=== PATIENT | male | born 1995 | race Caucasian/White ===

== ENCOUNTER 2022-12-21 00:26 | Emergency (ER) | payer SELFPAY ==
[~2022-12-21] VITALS: Ht 185.4 cm; Wt 63.6 kg
[~2022-12-21 00:26] MED LIST: ACET-1882 PO; LEVO500T31 PO
[2022-12-21 01:04] LABS: Basophils # (auto) 0.1 10 ^3/uL (0-0.2); Basophils % (auto) 0.8 % (0.0-2.0); Eosinophils # (auto) 0.1 10 ^3/uL (0-0.8); Eosinophils % (auto) 0.7 % (0.0-7.0); Hematocrit 45.8 % (41.0-53.0); Hemoglobin 15.6 g/dL (13.5-17.5); Lymphocytes % (auto) 22.6 % (10.0-50.0); Mean Corpuscular Hemoglobin 33.4 pg (28.0-32.0); Mean Corpuscular Hgb Conc. 34.1 g/dL (32.0-36.0); Mean Corpuscular Volume 97.9 fL (80.0-100.0); Monocytes # (auto) 0.7 10 ^3/uL (0-1.3); Monocytes % (auto) 7.4 % (0.0-12.0); Neutrophils % (auto) 68.5 % (37.0-80.0); Nucleated Red Blood Cells % 0.1 %; Red Blood Cells 4.68 10^6/uL (4.5-5.90); White Blood Cell 8.8 10^3/uL (4.4-10.8)
[2022-12-21 01:21] LABS: Alanine Aminotransferase 195 U/L (7-40); Alkaline Phosphatase 96 U/L (46-116); Anion Gap 11 (5-15); Aspartate Aminotransferase 204 U/L (13-40); BUN/Creatinine Ratio 9.3 (10.0-20.0); Bilirubin, Total 0.7 mg/dL (0.2-1.0); Blood Urea Nitrogen 10 mg/dL (9-23); Calcium 9.5 mg/dL (8.7-10.4); Carbon Dioxide 27 mmol/L (20-30); Chloride 102 mmol/L (98-107); Glucose 82 mg/dL (74-106); Magnesium 2.1 mg/dL (1.6-2.6); Potassium 4.1 mmol/L (3.5-5.1); Sodium 140 mmol/L (136-145)
[2022-12-21 01:36] LABS: INR 1.03 (0.9-1.15); Partial Thromboplastin Time 29.5 SEC (24.5-34.5); Prothrombin Time 10.8 sec (9.3-11.8)
[2022-12-21] MEDS ORDERED: THIAMINE 100mg/ml INJ (200mg/2ml VIAL) IV ONE (07:30)
[2022-12-21] MEDS ORDERED: LORazepam 2MG/ML-1ML VIAL IV ONE (07:30)
[2022-12-21] MEDS ORDERED: SODIUM CHLORIDE 0.9% 1,000 ML IV ONE (07:30)
[2022-12-21 07:37] VITALS: BP 132/78; TEMP 98.2
[2022-12-21 07:38] VITALS: PULSE 120; RESP 18; O2SAT 96
== END 2022-12-21 07:40 | disposition home or self-care (01) ==
LOC: ER 00:26
DX: R07.89 Other chest pain (principal); J45.909 Unspecified asthma, uncomplicated
CPT/HCPCS: 36415; 71045; 80053; 80320; 83690; 83735; 83880; 84484; 85025; 85610; 85730; 93005; 99285; J2060

== ENCOUNTER 2024-04-13 12:30 | Emergency (ER) | payer MEDICAID ==
[~2024-04-13] VITALS: Ht 188 cm; Wt 72.8 kg
[2024-04-13 12:50] VITALS: BP 152/90; PULSE 113; RESP 20; O2SAT 98
--- NOTE | 2024-04-13 13:01 | ED.PDOC ---
Back pain HPI HPI Comments 28y M who presents to the ED for rib pain. Pt states he was wresting with friends and play fighting 3 days prior. Pt states since, he has been having R sided rib pain. Pt rates the pain 6/10, constant, with no associated exacerbating or relieving factors. Pt has no associated symptoms. Pt states he has pain with movement and has pain when attempting to move his R arm above his shoulder. Pt otherwise denies any other symptoms at this time. Chief Complaint: Rib Pain Time Seen by MD: 12:58 Primary Care Provider: NONE Reviewed Notes: Medications, Allergies Allergies: Coded Allergies: NO KNOWN ALLERGIES (Unverified , 03/08/13) Home Meds Active Scripts Levofloxacin (Levaquin) 500 Mg Tab, 500 MG PO DAILY, #12 TAB Prov:CHARLY ALARCON MD 01/22/16 Acetaminophen (Acetaminophen) 325 Mg Tab, 650 MG PO Q4HPRN PRN, #30 TAB Prov:CHARLY ALARCON MD 01/22/16 Information Source: Patient Mode of Arrival: Ambulatory Brought in by: self Timing: Days Duration: Since onset Severity: Moderate Prehospital treatment: None Quality: Sharp Onset: Spontaneous, Bending, Twisting Circumstance: Altercation History of: None Modifying Factors: Nothing Associated signs and symptoms: None Past Medical History PAST MEDICAL HISTORY: Asthma Surgical History: Denies all surgeries Family History Family History: Unobtainable Social History Smoker: Cigarettes, Less Than 1 Pack/Day Alcohol: Occasionally Drugs: Marijuana, Methamphetamine Lives In: Home Constitutional: denies: chills, diaphoresis, fatigue, fever, malaise, sweats, weakness, others EENTM: denies: blurred vision, double vision, ear bleeding, ear discharge, ear drainage, ear pain, ear ringing, eye pain, eye redness, hearing loss, mouth pain, mouth swelling, nasal discharge, nose bleeding, nose congestion, nose pain, photophobia, tearing, throat pain, throat swelling, voice changes, others Respiratory: denies: cough, hemoptysis, orthopnea, SOB at rest, shortness of breath, SOB with excertion, stridor, wheezing, others Cardiovascular: denies: chest pain, dizzy spells, diaphoresis, Dyspnea on exertion, edema, irregular heart beat, left arm pain, lightheadedness, palpitations, PND, syncope, others Gastrointestinal: denies: abdomen distended, abdominal pain, blood streaked bowels, constipated, diarrhea, dysphagia, difficulty swallowing, hematemesis, melena, nausea, poor appetite, poor fluid intake, rectal bleeding, rectal pain, vomiting, others Genitourinary: denies: burning, dysuria, flank pain, frequency, hematuria, incontinence, penile discharge, penile sore, pain, testicle pain, testicle swelling, urgency, others Neurological: denies: dizziness, fainting, headache, left sided numbness, left sided weakness, numbness, paresthesia, pre-existing deficit, right sided numbness, right sided weakness, seizure, speech problems, tingling, tremors, weakness, others Musculoskeletal: reports: muscle pain (rib pain); denies: back pain, gout, joint pain, joint swelling, muscle stiffness, neck pain, others Integumetry: denies: bruises, change in color, change in hair/nails, dryness, laceration, lesions, lumps, rash, wounds, others Allergic/Immunocompromised: denies: Difficulty Healing, Frequent Infections, Hives, Itching, others Hematologic/Lymphatic: denies: anemia, blood clots, easy bleeding, easy bruising, swollen glands, others Endocrine: denies: excessive hunger, excessive sweating, excessive thirst, excessive urination, flushing, intolerance to cold, intolerance to heat, unexplained weight gain, unexplained weight loss, others Psychiatric: denies: anxiety, bipolar disorder, depression, hopeless, panic disorder, schizophrenia, sleepless, suicidal, others All Other Systems: Reviewed and Negative Physical Exam General Appearance: No Apparent Distress HEENT: Normal ENT Inspection, Pharynx Normal, TMs Normal Neck: Full Range of Motion, Non-Tender, Normal, Normal Inspection Respiratory: Lungs Clear, No Accessory Muscle Use, No Respiratory Distress, Normal Breath Sounds, Other (Tenderness to the right rib area) Cardiovascular: No Edema, No JVD, No Murmur, No Gallop, Normal Peripheral Pulses, Regular Rate/Rhythm Breast Exam: Deferred Gastrointestinal: No Organomegaly, Non Tender, No Pulsatile Mass, Normal Bowel Sounds, Soft Genitalia: Deferred Pelvic: Deferred Rectal: Deferred Extremities: No calf tenderness, Normal capillary refill, Normal inspection, Normal range of motion, Non-tender, No pedal edema Musculoskeletal : Apperance: Normal Neurologic: Alert, 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 Was a procedure done?: No Back Pain Differential Dx Differential Diagnosis: Fracture, Musculoskeletal Pain X-Ray, Labs, Meds, VS Vital Signs Date Time Temp Pulse Resp B/P (MAP) Pulse Ox O2 Delivery O2 Flow Rate FiO2 04/13/24 12:50 99.1 113 20 152/90 (110) 98 EXAMINATION: XY R RIB XRAY IMPRESSION: No acute cardiopulmonary disease. Chronic appearing fractures of the right posterior 9th and 10th ribs. Age indeterminate mildly displaced fracture of the lateral 7th and 8th rib. At this time, the patient was being discharged The patient was given a prescription of ibuprofen The patient will return to the emergency department's condition worsens. Images Reviewed?: Images reviewed and evaluated by me Time of 1ST Reevaluation: 13:30 Reevaluation 1ST: Unchanged Patient Education/Counseling: Diagnosis, Treatment, Prognosis, Need For Follow Up Family Education/Counseling: No Family Present Departure 1 Departure Time of Disposition: 14:17 Impression: Primary Impression: Ribs, multiple fractures Qualified Codes: S22.41XD - Multiple fractures of ribs, right side, subsequent encounter for fracture with routine healing Disposition: 01 HOME / SELF CARE / HOMELESS Condition: Fair Discharged With: Self Critical Care Note Critical Care Time?: No Stability Stability form required: No Heart Score Heart Score: Heart Score Response (Comments) Value History N/A 0 EKG N/A 0 Age N/A 0 Risk Factors N/A 0 Troponin N/A 0 Total 0 I personally scribed for CAN PORTER MD ([email or web address]) on 04/13/24 at 13:01. Electronically submitted by Blaine Lala ([facility]). I personally scribed for CAN PORTER MD ([email or web address]) on 04/13/24 at 13:28. Electronically submitted by Blaine Lala ([facility]). CAN PORTER MD Apr 13, 2024 13:01
--- NOTE | 2024-04-13 13:27 | DVH ---
EXAMINATION: XY R RIB XRAY INDICATION: trauma COMPARISON: None TECHNIQUE: Frontal view of the chest and 4 views of the right ribs history FINDINGS: No focal consolidation, pleural effusion or significant pneumothorax. Normal cardiomediastinal silhou ette. Chronic appearing fractures of the right posterior 9th and 10th ribs. Age indeterminate mildly displaced fracture of the lateral 7th and 8th rib. IMPRESSION: No acute cardiopulmonary disease. Chronic appearing fractures of the right posterior 9th and 10th ribs. Age indeterminate mildly displaced fracture of the lateral 7th and 8th rib.
[2024-04-13] MEDS ORDERED: IBUPROFEN 800 MG TAB PO ONE (14:30)
[2024-04-13] MEDS ORDERED: IBU600T PO (14:37)
== END 2024-04-13 15:43 | disposition home or self-care (01) ==
LOC: ER 12:30
DX: S22.41XA Multiple fractures of ribs, right side, initial encounter for closed fracture (principal); J45.909 Unspecified asthma, uncomplicated; F17.210 Nicotine dependence, cigarettes, uncomplicated; X58.XXXA Exposure to other specified factors, initial encounter; Y93.72 Activity, wrestling; Y93.89 Activity, other specified; Y92.89 Other specified places as the place of occurrence of the external cause; Y99.8 Other external cause status
CPT/HCPCS: 71101

== ENCOUNTER 2024-04-19 01:19 | Emergency (ER) | payer MEDICAID ==
[~2024-04-19] VITALS: Ht 185.4 cm; Wt 72.7 kg
[~2024-04-19 01:19] MED LIST changes: +IBU600T PO
[2024-04-19 01:30] VITALS: BP 140/91; PULSE 90; RESP 13; O2SAT 98
[2024-04-19] MEDS ORDERED: IBUP-1456 PO (02:31)
--- NOTE | 2024-04-19 02:35 | ED.PDOC ---
Musculoskeletal HPI Comments 28 YEAR OLD MALE PRESENTS TO ER WITH COMPLAINTS OF RIGHT SHOULDER PAIN X 6 DAYS. PATIENT STATES HE STARTED EXPERIENCING 9/10 RIGHT SHOULDER PAIN WITH RADIATION TOWARDS RIGHT CLAVICLE THAT STARTED 6 DAYS AGO "WHILE WRESTLING WITH HIS FRIEND". DENIES HEAD INJURY/LOC AND DENIES USE OF MEDICATIONS FOR CURRENT SYMPTOMS. STATES HE WAS SEEN IN ER HERE FOR RIGHT SIDE RIB PAIN THAT OCCURRED AFTER WRESTLING WITH HIS FRIEND BUT ELOPED FROM ER AT THAT TIME. PATIENT PRESENTS TO ER AMBULATORY ON ARRIVAL WITH A RIGHT SHOULDER SLING APPLIED. DENIES NUMBNESS/TINGLING, NECK PAIN, SHORTNESS OF BREATH, CHEST PAIN OR ANY FURTHER SYMPTOMS/COMPLAINTS Chief Complaint: Upper Extremity Time Seen by MD: 01:49 Primary Care Provider: UNKNOWN Reviewed Notes: Nurses Notes, Medications, Allergies Allergies: Coded Allergies: NO KNOWN ALLERGIES (Unverified , 03/08/13) Home Meds Active Scripts Ibuprofen (Ibuprofen) 800 Mg Tab, 1 TAB PO TID PRN, #30 TAB 0 Refills Prov:LOUIE REED 04/19/24 Ibuprofen Micronized (MOTRIN TABLET) 600 Mg Tb, 600 MG PO TID PRN, #40 TAB *Black box warning-NSAIDS can increase risk of AL & hypertension, GI irritation, ulceration, bleed, perferation. Do not use post cardiac surgery. Use short duration/lowest effective dose. Prov:CAN PORTER MD 04/13/24 Levofloxacin (Levaquin) 500 Mg Tab, 500 MG PO DAILY, #12 TAB Prov:CHARLY ALARCON MD 01/22/16 Acetaminophen (Acetaminophen) 325 Mg Tab, 650 MG PO Q4HPRN PRN, #30 TAB Prov:CHARLY ALARCON MD 01/22/16 Information Source: Patient Mode of Arrival: Ambulatory Past Medical History PAST MEDICAL HISTORY: Asthma Surgical History (Other): LEFT HAND SURGERY Family History Family History: Unknown Social History Smoker: Cigarettes, Less Than 1 Pack/Day Alcohol: Occasionally Drugs: Marijuana, Methamphetamine Lives In: Home Constitutional: denies: chills, diaphoresis, fatigue, fever, malaise, sweats, weakness, others EENTM: denies: blurred vision, double vision, ear bleeding, ear discharge, ear drainage, ear pain, ear ringing, eye pain, eye redness, hearing loss, mouth pain, mouth swelling, nasal discharge, nose bleeding, nose congestion, nose pain, photophobia, tearing, throat pain, throat swelling, voice changes, others Respiratory: denies: cough, hemoptysis, orthopnea, SOB at rest, shortness of breath, SOB with excertion, stridor, wheezing, others Cardiovascular: denies: chest pain, dizzy spells, diaphoresis, Dyspnea on exertion, edema, irregular heart beat, left arm pain, lightheadedness, palpitations, PND, syncope, others Gastrointestinal: denies: abdomen distended, abdominal pain, blood streaked bowels, constipated, diarrhea, dysphagia, difficulty swallowing, hematemesis, melena, nausea, poor appetite, poor fluid intake, rectal bleeding, rectal pain, vomiting, others Genitourinary: denies: burning, dysuria, flank pain, frequency, hematuria, incontinence, penile discharge, penile sore, pain, testicle pain, testicle swelling, urgency, others Neurological: denies: dizziness, fainting, headache, left sided numbness, left sided weakness, numbness, paresthesia, pre-existing deficit, right sided numbness, right sided weakness, seizure, speech problems, tingling, tremors, weakness, others Musculoskeletal: reports: others ( STATED IN HPI) Integumetry: denies: bruises, change in color, change in hair/nails, dryness, laceration, lesions, lumps, rash, wounds, others Allergic/Immunocompromised: denies: Difficulty Healing, Frequent Infections, Hives, Itching, others Hematologic/Lymphatic: denies: anemia, blood clots, easy bleeding, easy bruising, swollen glands, others Endocrine: denies: excessive hunger, excessive sweating, excessive thirst, excessive urination, flushing, intolerance to cold, intolerance to heat, unexplained weight gain, unexplained weight loss, others Psychiatric: denies: anxiety, bipolar disorder, depression, hopeless, panic disorder, schizophrenia, sleepless, suicidal, others Physical Exam General Appearance: No Apparent Distress HEENT: PERRL/EOMI Neck: Full Range of Motion, Non-Tender, Normal Respiratory: Lungs Clear, No Accessory Muscle Use, No Respiratory Distress, Normal Breath Sounds, Other (SLIGHT TTP TO RIGHT 7TH AND 8TH RIBS NOTED. NO SKIN CHANGES NOTED) Cardiovascular: No Murmur, No Gallop, Regular Rate/Rhythm Breast Exam: Deferred Gastrointestinal: NOT DONE Genitalia: Deferred Pelvic: Deferred Rectal: Deferred Extremities: Normal capillary refill Musculoskeletal : Extremity Location: Shoulder (TTP TO RIGHT PROXIMAL HUMERUS AND RIGHT MID CLAVICLE NOTED. NO SKIN CHANGES/DEFORMITY NOTED. POSITIVE APLEY SCRATCH TEST RIGHT SHOULDER. 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 Was a procedure done?: No Sedation Sedation?: No Differential Diagnosis EXT Differential Diagnosis: Dislocation, Laceration, DJD, Neurovascular injury X-Ray, Labs, Meds, VS Vital Signs Date Time Temp Pulse Resp B/P (MAP) Pulse Ox O2 Delivery O2 Flow Rate FiO2 04/19/24 01:30 98.3 90 13 140/91 (107) 98 Current Medications Medications (Trade) Dose Ordered Sig/Casey Route Start Time Stop Time Status Last Admin Ibuprofen (Motrin Tablet) 800 mg ONCE ONCE PO 04/19/24 02:45 04/19/24 02:46 DC 04/19/24 02:48 PATIENT: DAIJA IRAHETA ACCT: [id number] UNIT: [id number] : 1995 LOC: ER ROOM / BED: / AGE / SEX: 28 / M ADM STATUS: REG ER SERVICE 0219 ORDERING PHYSICIAN: LOUIE REED PROCEDURE(s): RSHD2 - R SHOULDER 2+ VIEW XRAY REASON: RIGHT SHOULDER/RIGHT CLAVICLE PAIN ORDER NUMBER(s): [id number], ACCESSION NUMBER(s): [id number] EXAM: XY R SHOULDER 2+ VIEW XRAY HISTORY: RIGHT SHOULDER/RIGHT CLAVICLE PAIN COMPARISON: None TECHNIQUE: Four views of the right shoulder were performed. FINDINGS: No acute fracture or dislocation are identified about the right shoulder. No significant degenerative changes or loss of subacromial space. IMPRESSION: 1. Unremarkable radiographs of the right shoulder. ATED BY: KAMRYN SOSA MD DICTATED DATE/TIME: 04/19/24346 SIGNED BY: KAMRYN SOSA MD SIGNED DATE/TIME: 04/19/24346 CC: RIGHT SHOULDER X-RAY REVIEWED ADVISED TO CONTINUE USE OF RIGHT ARM SLING IBUPROFEN 800 MG P.O. ORDERED PATIENT NEUROVASCULARLY INTACT PREVIOUS ER CHART REVIEWED METHAMPHETAMINE/CANNABIS/SMOKING CESSATION DISCUSSED AND ADVISED ADVISED TO FOLLOW UP WITH PCP AND ORTHOPEDICS IN 1-2 DAYS PATIENT VERBALIZED UNDERSTANDING AND AGREEABLE WITH CURRENT PLAN OF CARE ADVISED TO RETURN TO ER IMMEDIATELY IF SYMPTOMS WORSEN Images Reviewed?: Images reviewed and evaluated by me Time of 1ST Reevaluation: 02:14 Reevaluation 1ST: N/A Patient Education/Counseling: Diagnosis, Treatment, Prognosis, Need For Follow Up Family Education/Counseling: No Family Present Departure 1 Departure Time of Disposition: 02:30 Impression: Primary Impression: Right shoulder strain Qualified Codes: S46.911A - Strain of unspecified muscle, fascia and tendon at shoulder and upper arm level, right arm, initial encounter Additional Impressions: Polysubstance abuse Fracture, ribs Qualified Codes: S22.41XD - Multiple fractures of ribs, right side, subsequent encounter for fracture with routine healing Disposition: 01 HOME / SELF CARE / HOMELESS Condition: Stable e-Prescriptions Ibuprofen (Ibuprofen) 800 Mg Tab 1 TAB PO TID PRN, #30 TAB 0 Refills Prov: LOUIE REED 04/19/24 Discharged With: Self Critical Care Note Critical Care Time?: No Stability Stability form required: No Heart Score Heart Score: Heart Score Response (Comments) Value History N/A 0 EKG N/A 0 Age N/A 0 Risk Factors N/A 0 Troponin N/A 0 Total 0 LOUIE REED Apr 19, 2024 02:35
[2024-04-19] MEDS: IBUPROFEN 800 MG TAB PO ONE (02:48)
--- NOTE | 2024-04-19 03:48 | DVH ---
EXAM: XY R SHOULDER 2+ VIEW XRAY HISTORY: RIGHT SHOULDER/RIGHT CLAVICLE PAIN COMPARISON: None TECHNIQUE: Four views of the right shoulder were performed. FINDINGS: No acute fracture or dislocation are identified about the right shoulder. No significant degenerativ e changes or loss of subacromial space. IMPRESSION: 1. Unremarkable radiographs of the right shoulder.
== END 2024-04-19 03:57 | disposition home or self-care (01) ==
LOC: ER 01:19
DX: S46.911A Strain of unspecified muscle, fascia and tendon at shoulder and upper arm level, right arm, initial encounter (principal); S22.41XD Multiple fractures of ribs, right side, subsequent encounter for fracture with routine healing; F19.10 Other psychoactive substance abuse, uncomplicated; F17.210 Nicotine dependence, cigarettes, uncomplicated; J45.909 Unspecified asthma, uncomplicated; Z98.890 Other specified postprocedural states; X58.XXXA Exposure to other specified factors, initial encounter; Y93.72 Activity, wrestling; Y92.89 Other specified places as the place of occurrence of the external cause; Y99.8 Other external cause status
CPT/HCPCS: 73030

== ENCOUNTER 2024-10-08 21:22 | Emergency (ER) | payer MEDICAID ==
[~2024-10-08] VITALS: Ht 185.4 cm; Wt 76.0 kg
[~2024-10-08 21:22] MED LIST changes: +IBUP-1456 PO
--- NOTE | 2024-10-08 22:03 | ED.PDOC ---
HPI Comments 28-year-old male who came to ER for chest pain. Patient states for the past 2 days he has been having intermittent episodes of right chest wall pain, just below the right ribcage, sharp, nonradiating, tender to touch, worsens with deep breathing and movements. Denies any recent trauma or heavy lifting. No bruising noted. Chief Complaint: Chest pain Time Seen by MD: 22:03 Primary Care Provider: UNKNOWN Reviewed Notes: Nurses Notes Allergies: Coded Allergies: NO KNOWN ALLERGIES (Unverified , 03/08/13) Home Meds Active Scripts Ibuprofen (Ibuprofen) 800 Mg Tab, 1 TAB PO TID PRN, #30 TAB 0 Refills Prov:LOUIE REED 04/19/24 Ibuprofen Micronized (MOTRIN TABLET) 600 Mg Tb, 600 MG PO TID PRN, #40 TAB *Black box warning-NSAIDS can increase risk of LA & hypertension, GI irritation, ulceration, bleed, perferation. Do not use post cardiac surgery. Use short duration/lowest effective dose. Prov:CAN PORTER MD 04/13/24 Levofloxacin (Levaquin) 500 Mg Tab, 500 MG PO DAILY, #12 TAB Prov:CHARLY ALARCON MD 01/22/16 Acetaminophen (Acetaminophen) 325 Mg Tab, 650 MG PO Q4HPRN PRN, #30 TAB Prov:CHARLY ALARCON MD 01/22/16 Information Source: Patient Mode of Arrival: Ambulatory Severity: Moderate Timing: Days Duration: Intermittent Location: Chest (R) Radiation: No Radiation Quality: Sharp, Stabbing Past Medical History PAST MEDICAL HISTORY: Asthma Surgical History: Denies all surgeries Family History Family History: Reviewed,noncontributory to illness Social History Smoker: Cigarettes, Less Than 1 Pack/Day Alcohol: Denies ETOH Use Drugs: Denies Drug Use Lives In: Home Constitutional: denies: chills, diaphoresis, fatigue, fever, malaise, sweats, weakness, others EENTM: denies: blurred vision, double vision, ear bleeding, ear discharge, ear drainage, ear pain, ear ringing, eye pain, eye redness, hearing loss, mouth pain, mouth swelling, nasal discharge, nose bleeding, nose congestion, nose pain, photophobia, tearing, throat pain, throat swelling, voice changes, others Respiratory: denies: cough, hemoptysis, orthopnea, SOB at rest, shortness of breath, SOB with excertion, stridor, wheezing, others Cardiovascular: reports: chest pain; denies: dizzy spells, diaphoresis, Dyspnea on exertion, edema, irregular heart beat, left arm pain, lightheadedness, palpitations, PND, syncope, others Gastrointestinal: denies: abdomen distended, abdominal pain, blood streaked bowels, constipated, diarrhea, dysphagia, difficulty swallowing, hematemesis, melena, nausea, poor appetite, poor fluid intake, rectal bleeding, rectal pain, vomiting, others Genitourinary: denies: burning, dysuria, flank pain, frequency, hematuria, incontinence, penile discharge, penile sore, pain, testicle pain, testicle swelling, urgency, others Neurological: denies: dizziness, fainting, headache, left sided numbness, left sided weakness, numbness, paresthesia, pre-existing deficit, right sided numbness, right sided weakness, seizure, speech problems, tingling, tremors, weakness, others Musculoskeletal: denies: back pain, gout, joint pain, joint swelling, muscle pain, muscle stiffness, neck pain, others Integumetry: denies: bruises, change in color, change in hair/nails, dryness, laceration, lesions, lumps, rash, wounds, others Allergic/Immunocompromised: denies: Difficulty Healing, Frequent Infections, Hives, Itching, others Hematologic/Lymphatic: denies: anemia, blood clots, easy bleeding, easy bruising, swollen glands, others Endocrine: denies: excessive hunger, excessive sweating, excessive thirst, excessive urination, flushing, intolerance to cold, intolerance to heat, unexplained weight gain, unexplained weight loss, others Psychiatric: denies: anxiety, bipolar disorder, depression, hopeless, panic disorder, schizophrenia, sleepless, suicidal, others Physical Exam General Appearance: No Apparent Distress, Normal HEENT: Normal ENT Inspection, Pharynx Normal, TMs Normal Neck: Full Range of Motion, Non-Tender, Normal, Normal Inspection Respiratory: Chest Non-Tender, Lungs Clear, No Accessory Muscle Use, No Respiratory Distress, Normal Breath Sounds Cardiovascular: No Edema, No JVD, No Murmur, No Gallop, Normal Peripheral Pulses, Regular Rate/Rhythm, Other (Tender to touch, no bruising noted) Breast Exam: Deferred Gastrointestinal: No Organomegaly, Non Tender, No Pulsatile Mass, Normal Bowel Sounds, Soft Genitalia: Deferred Pelvic: Deferred Rectal: Deferred Extremities: No calf tenderness, Normal capillary refill, Normal inspection, Normal range of motion, Non-tender, No pedal edema Musculoskeletal : Apperance: Normal Neurologic: Alert, 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 Was a procedure done?: No CP Differential Dx Differential Diagnosis: Angina, Anxiety / Panic Attack Differential Diagnosis: Angina, Chest Wall Pain, Costochondritis, Esophageal reflux/spasm, Gastritis, Myocardial Infarction, Pericarditis, Pneumonia, Pneumothorax, Pulmonary Embolus, Other (rib fractures) X-Ray, Labs, Meds, VS Vital Signs Date Time Temp Pulse Resp B/P (MAP) Pulse Ox O2 Delivery O2 Flow Rate FiO2 10/08/24 22:19 98.3 79 14 123/69 (87) 99 98.3 10/08/24 22:09 Room Air* 0 21 10/08/24 21:23 97.5 75 18 128/79 99 97.5 Current Medications Medications (Trade) Dose Ordered Sig/Casey Route Start Time Stop Time Status Last Admin Ketorolac Tromethamine (Toradol Injection) 15 mg ONCE ONCE IM 10/08/24 22:00 10/08/24 22:01 DC 10/08/24 22:20 Time of 1ST Reevaluation: 22:00 Reevaluation 1ST: Unchanged Patient Education/Counseling: Diagnosis, Treatment, Prognosis, Need For Follow Up Family Education/Counseling: No Family Present SEPSIS Sepsis Screen Date sepsis recognized/suspect: Oct 08, 2024 Time Sepsis recognized/suspect: 2122 Recent Procedure: No On Antibiotic Therapy: No Respiratory Rate >20: No Heart Rate >90: No Temp<36 C (96.8 F) or >38.3 C: No SBP <90 or MAP <65 mmHG: No New Acute Mental Status Change: No Is the patient on CPAP, BIPAP,: No Physician Orders R Rib Xray (10/08/24 21:58) Vital Signs Date Time Temp Pulse Resp B/P (MAP) Pulse Ox O2 Delivery O2 Flow Rate FiO2 10/08/24 22:19 98.3 79 14 123/69 (87) 99 98.3 10/08/24 22:09 Room Air* 0 21 10/08/24 21:23 97.5 75 18 128/79 99 97.5 Medications Medications Dose Ordered Sig/Casey Route Start Time Stop Time Status Last Admin Dose Admin Ketorolac Tromethamine 15 mg ONCE ONCE IM 10/08/24 22:00 10/08/24 22:01 DC 10/08/24 22:20 Departure 1 Departure Time of Disposition: 23:17 Impression: Primary Impression: Ribs, multiple fractures Qualified Codes: S22.41XA - Multiple fractures of ribs, right side, initial encounter for closed fracture Disposition: 01 HOME / SELF CARE / HOMELESS Condition: Good e-Prescriptions Hydrocodone-Acetaminophen (Hydrocodone Bitartrate/AC 5-325 mg) 1 Tab Tab 1 TAB PO Q8HP PRN for 3 Days, #9 TAB Prov: ENDY URIOSTEGUI MD 10/08/24 Discharged With: Self Critical Care Note Critical Care Time?: No Stability Stability form required: No Heart Score Heart Score: Heart Score Response (Comments) Value History Slightly Suspicious 0 EKG Normal 0 Age <45 0 Risk Factors No known risk factors 0 Troponin N/A 0 Total 0 I personally scribed for ENDY URIOSTEGUI MD ([email or web address]) on 10/08/24 at 22:03. Electronically submitted by Dallas Rodriguez ([facility]). ENDY URIOSTEGUI MD Oct 08, 2024 22:03
[2024-10-08 22:19] VITALS: BP 123/69; PULSE 79; RESP 14; TEMP 98.3; O2SAT 99
[2024-10-08] MEDS: KETOROLAC TROMETH 30 MG/ML 1ML VIAL IM ONE (22:20)
--- NOTE | 2024-10-08 22:48 | DVH ---
EXAMINATION: XY R RIB XRAY INDICATION: pain COMPARISON: XY R RIB XRAY on DOS: 04/13/24 TECHNIQUE: 5 views FINDINGS: Nondisplaced fractures of right lateral ribs 9-10 best appreciated on the 2nd image. No other identif ied fracture. The lungs are clear. No evident pleural effusion or pneumothorax. Normal heart size. IMPRESSION: 1. Nondisplaced right 9th-10th rib fractures. 2. No evidence of pneumothorax.
[2024-10-08] MEDS ORDERED: HYDR-4902 PO (23:17)
== END 2024-10-09 00:07 | disposition home or self-care (01) ==
LOC: ER 21:22
DX: S22.41XA Multiple fractures of ribs, right side, initial encounter for closed fracture (principal); F17.210 Nicotine dependence, cigarettes, uncomplicated; Z79.899 Other long term (current) drug therapy; X58.XXXA Exposure to other specified factors, initial encounter; Y93.89 Activity, other specified; Y92.89 Other specified places as the place of occurrence of the external cause; Y99.8 Other external cause status
CPT/HCPCS: 71101; 96372; 99283; J1885